=== PATIENT | female | born 1990 | race African-American/Black ===

== ENCOUNTER 2017-05-12 22:29 | Inpatient (IN) | payer SELFPAY ==
[~2017-05-12] VITALS: Ht 160 cm; Wt 59.7 kg
[2017-05-12 23:35] LABS: BASOPHILS # (AUTO) 0.01 K/uL (0.00-0.20); BASOPHILS % (AUTO) 0.1 % (0.0-2.0); EOSINOPHILS # (AUTO) 0.08 K/uL (0.00-0.70); EOSINOPHILS % (AUTO) 1.16 % (1.0-6.0); HEMATOCRIT 30.3 % (36-46); HEMOGLOBIN 9.6 g/dL (12.0-16.0); LYMPHOCYTES # (AUTO) 1.8 K/uL (1.0-4.8); LYMPHOCYTES % (AUTO) 24.7 % (22.0-44.0); MEAN CORPUSCULAR HEMOGLOBIN 23.5 pg (26.0-34.0); MEAN CORPUSCULAR HGB CONC 31.5 G/dL (31.0-37.0); MEAN CORPUSCULAR VOLUME 74 fL (80-100); MONOCYTES # (AUTO) 0.3 K/uL (0.1-1.0); MONOCYTES % (AUTO) 4.3 % (2.0-9.0); NEUTROPHILS # (AUTO) 5.1 K/uL (1.8-7.7); NEUTROPHILS % (AUTO) 69.8 % (40.0-70.0); PLATELET COUNT (AUTO) 316 K/uL (150-450); RED BLOOD CELL COUNT(AUTO) 4.07 MIL/uL (4.00-5.20); RED CELL DISTRIBUTION WIDTH 17.9 % (11.5-14.5); WHITE BLOOD COUNT (AUTO) 7.3 K/uL (4.5-11.0)
[2017-05-12 23:44] LABS: ANION GAP 11 mmol/L (8-16); CALCIUM, TOTAL 9.6 mg/dL (8.8-10.5); CARBON DIOXIDE 27 mmol/L (22-29); CHLORIDE 103 mmol/L (98-107); CREATININE 1.27 mg/dL (0.60-1.30); GLOMERULAR FILTR. RATE CALC > 60 mL/min (>60); POTASSIUM 3.5 mmol/L (3.5-5.1); SODIUM SERUM 141 mmol/L (136-145); UREA NITROGEN, BLOOD 18 mg/dL (7-18)
[2017-05-12 23:49] LABS: ALANINE AMINOTRANSFERASE 25 U/L (12-78); ALBUMIN 4.1 g/dL (3.4-5.0); ASPARTATE AMINOTRANSFERASE 18 U/L (15-37); BILIRUBIN,TOTAL 0.3 mg/dL (0.1-1.0); TOTAL PROTEIN, SERUM 8.3 g/dL (6.4-8.2)
[2017-05-13 00:10] LABS: RBC MORPHOLOGY COMMENT ABNORMAL RBC MORPH
[2017-05-13] MEDS ORDERED: ZOLPIDEM TARTRATE 10 MG TABLET PO PRN (05:45)
[2017-05-13] MEDS ORDERED: LORazepam 2 MG TABLET PO PRN (05:45)
[2017-05-13] MEDS ORDERED: HALOPERIDOL 5 MG TABLET PO PRN (05:45)
[2017-05-13] MEDS ORDERED: INFLUENZA VIRUS VACCINE QVS 2017-18 (3YR+)/PF 60 MCG/0.5 ML SYRINGE IM ONE (07:15)
[2017-05-13 07:18] VITALS: BP 125/78
[2017-05-13 08:45] VITALS: BP 125/78
[2017-05-13 16:23] VITALS: BP 122/64
[2017-05-13] MEDS: FERROUS SULFATE 325 MG EC TABLET PO SCH (16:34)
[2017-05-13] MEDS: MIRTAZAPINE 15 MG TABLET PO SCH (21:16)
[2017-05-14 06:07] VITALS: BP 125/70
[2017-05-14] MEDS: FERROUS SULFATE 325 MG EC TABLET PO SCH ×3 (06:44→16:01)
[2017-05-14 07:48] LABS: CHOL/HDL RATIO 3.3 (3.9-5.7)
[2017-05-14] MEDS ORDERED: ARIPiprazole 10 MG TABLET PO SCH (09:00)
[2017-05-14 16:41] VITALS: BP 115/70
[2017-05-14] MEDS: MIRTAZAPINE 15 MG TABLET PO SCH (20:36)
[2017-05-15 00:53] VITALS: BP 125/74
[2017-05-15] MEDS: FERROUS SULFATE 325 MG EC TABLET PO SCH ×3 (06:35→16:03)
[2017-05-15 08:51] VITALS: BP 133/76
[2017-05-15] MEDS: ARIPiprazole 10 MG TABLET PO SCH (09:16)
[2017-05-15 16:30] VITALS: BP 116/66
[2017-05-15] MEDS ORDERED: MIRTAZAPINE 30 MG TABLET PO SCH (21:00)
[2017-05-16] MEDS: FERROUS SULFATE 325 MG EC TABLET PO SCH ×2 (07:22→11:37)
[2017-05-16 07:23] VITALS: BP 130/64
[2017-05-16 08:15] VITALS: BP 122/75
[2017-05-16] MEDS: ARIPiprazole 10 MG TABLET PO SCH (08:17)
[2017-05-16] MEDS ORDERED: FERR-89 PO (08:58)
[2017-05-16] MEDS ORDERED: MIRT30 PO (08:58)
[2017-05-16] MEDS ORDERED: ARIP10TA8 PO (08:58)
== END 2017-05-16 13:10 | disposition home or self-care (01) | DRG 885 ==
LOC: EMS 22:33 → B2S 05-13 05:31
PROVIDERS: ADMIT Psychiatry & Neurology Psychiatry; ATTEND Psychiatry & Neurology Psychiatry
DX: F25.0 Schizoaffective disorder, bipolar type (principal); F15.20 Other stimulant dependence, uncomplicated; F41.9 Anxiety disorder, unspecified; F12.90 Cannabis use, unspecified, uncomplicated; M54.9 Dorsalgia, unspecified; D64.9 Anemia, unspecified; F17.200 Nicotine dependence, unspecified, uncomplicated; Z59.0 Homelessness; Z81.8 Family history of other mental and behavioral disorders; Z91.19 Patient's noncompliance with other medical treatment and regimen; Z28.21 Immunization not carried out because of patient refusal
CPT/HCPCS: 99285; G0480